=== PATIENT | male | born 1955 | race Hispanic/Latino ===

== ENCOUNTER 2017-12-06 12:04 | Emergency (ER) | payer OTHER ==
[2017-12-06] MEDS ORDERED: LIDOCAINE HCL-MPF 1% 2ML VIAL ONE (13:54)
[2017-12-06] MEDS ORDERED: CEFTRIAXONE SODIUM 1 GM ONE (13:54)
== END 2017-12-06 14:37 | disposition home or self-care (01) ==
LOC: EDH 12:04
DX: J18.0 Bronchopneumonia, unspecified organism (principal); F32.9 Major depressive disorder, single episode, unspecified; Z79.899 Other long term (current) drug therapy
CPT/HCPCS: 71046; 96372; 99284; J0696; J3490